=== PATIENT | male | born 1945 | race Caucasian/White ===

== ENCOUNTER 2017-11-27 17:25 | Emergency (ER) | payer MEDICARE ==
[~2017-11-27 17:25] MED LIST: ALLO300T PO; AMLO10TA2 PO; ASPI-482 PO; AZIT250T6 PO; CARV6.252 PO; CHOL2000 PO; DOCU-150 PO; FERR325T58 PO; GLIM4TAB2 PO; HYDR-971 PO; HYDR12.58 PO; INSU100I13 SQ; LISI40TA PO; METH4TAB PO; MULT1TAB52 PO; OMEG500C PO; PRAV40TA2 PO; TRAZ50TA15 PO
--- NOTE | 2017-11-27 17:39 | ED.ADGEN ---
Past History Past Medical History: Diabetes, Heart Disease, Renal Disease, Other Past Surgical History: Hip Replacement, Knee Replacement, Lumbar Laminectomy, Other Smoking: Non-smoker Alcohol Use: None Drug Use: None Adult General Chief Complaint Chief Complaint Note this is a reconstructed report- Prior loss in computer malfunction- there may be incomplete or duplication of record..." "...I superman and did not fly right... I was getting out of car...and walking along the edge ... stepped off edge.. and fell on my nose.." HPI HPI Patient is a 71 year old male who presents with above hx and complaints fall and abrasion to nose. No loss of consciousness. No hx of dizziness or dysrhythmia prior to fall. Pt. states he just missed stepped. Pt. has a deep 2 x 3 cm abrasion to bridge of nose. No septal hematoma. May have slight non- displace fx. of nasal bridge. No orbit tenderness. No visual changes. TM clear. Abrasions to both upper and lower lips. Good bite. No neck tenderness. No other reported injuries. Did have repeat skin tear 1 cm to old eschar lt forearm. Pt. not on any anticoagulant or antiplatelets. Pt. reports up to date with tetanus. Pt. noted to have other abrasions to lower legs that appear to be different stages of healing. was present at time of fall. She reports no loss consciousness and he is at base line mental status. Pt. recently had [facility] for chemo tx. 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 Pt. states labs follow at . Pt. also follows with [facility] for care. No hx of travel or specific ill contacts. Pt. Declines CT or labs at this time. Wounds cleaned with surgical soap and antibiotic placed. Review of Systems Review of Systems Constitutional: Denies fever or chills [] Eyes: Denies change in visual acuity, redness, or eye pain [] HENT: Denies nasal congestion or sore throat [] Complaints of nasal abrasion. Respiratory: Denies cough or shortness of breath [] Cardiovascular: No additional information not addressed in HPI [] GI: Denies abdominal pain, nausea, vomiting, bloody stools or diarrhea [] : Denies dysuria or hematuria [] Musculoskeletal: Denies back pain or joint pain [] Integument: Denies rash or skin lesions [] Neurologic: Denies headache, focal weakness or sensory changes [] Endocrine: Denies polyuria or polydipsia [] All other systems were reviewed and found to be within normal limits, except as documented in this note. Family History Family History Non-contributory Current Medications Current Medications See Nursing for home meds. Allergies Allergies Allergies Coded Allergies Type Severity Reaction Last Updated Verified pioglitazone HCl Allergy Severe 06/28/14 Yes NSAIDS (Non-Steroidal Anti-Inflamma Adverse Reaction Unknown hx kidney dx No Physical Exam Physical Exam Constitutional: Moderately acute distress, non-toxic appearance. [] HENT: Normocephalic, , bilateral external ears normal, oropharynx moist, no oral exudates, nose abrasions to nose. Abrasion to lips Eyes: PERRLA, EOMI, conjunctiva normal, no discharge. [] Neck: Normal range of motion, no tenderness, supple, no stridor. [] Cardiovascular:Heart rate regular rhythm, no murmur []PMI Lt. Lungs & Thorax: Bilateral breath sounds equal at apex on auscultation [] Port. Rt. Abdomen: Bowel sounds normal, soft, no tenderness, no masses, no pulsatile masses. [] Skin: Warm, dry, no erythema, no rash. [] Abrasions as per HPI. Back: No tenderness, no CVA tenderness. [] Old scar. Extremities: No tenderness, no cyanosis, no clubbing, ROM intact, no edema. [] Arthritic changes. Abrasions- different stages healing. Old scars knees, hip. Neurologic: Alert and oriented X 3, moves all ext. on request, report his sensory function at baseline, , no focal deficits noted. []Has slightly shuffle gait. DTR +2 patella. strip roller equal. Psychologic: Affect normal, judgement normal, mood normal. [] Current Patient Data Vital Signs Vital Signs Date Time Temp Pulse Resp B/P (MAP) Pulse Ox O2 Delivery O2 Flow Rate FiO2 11/27/17 17:40 98.2 78 18 98 Room Air EKG EKG [] Radiology/Procedures Radiology/Procedures [] Course & Med Decision Making Course & Med Decision Making Pertinent Labs and Imaging studies reviewed. (See chart for details). Wound wash with surgical soap and antibiotic place with gauze dressing. Do not blow nose. May sniff. Apply polysporin 4 x day. No direct show water or bath water until good eschar forms. Head injury precautions given. Advised pt risk of infection due immunosuppression from bone marrow transplant tx. Must follow up with primary and [facility]. Return if any concerns. Pt. declines CT or Labs at this time. Has follow up at [facility]. Transplant team. [] Final Impression Final Impression 1. Fall 2. Abrasion Nasal / contusion[] Dragon Disclaimer Dragon Disclaimer This electronic medical record was generated, in whole or in part, using a voice recognition dictation system. JEFF HERNANDEZ MD November 27, 2017 17:39
[2017-11-27 17:40] VITALS: BP 170/72
[2017-11-27] MEDS ORDERED: BACI28.34 TP (18:06)
== END 2017-11-27 18:14 | disposition home or self-care (01) ==
LOC: ER 17:25
DX: S00.31XA Abrasion of nose, initial encounter (principal); S00.511A Abrasion of lip, initial encounter; S51.812A Laceration without foreign body of left forearm, initial encounter; E11.9 Type 2 diabetes mellitus without complications; N28.9 Disorder of kidney and ureter, unspecified; I51.9 Heart disease, unspecified; Z88.6 Allergy status to analgesic agent; Z88.8 Allergy status to other drugs, medicaments and biological substances; W01.198A Fall on same level from slipping, tripping and stumbling with subsequent striking against other object, initial encounter; Y93.01 Activity, walking, marching and hiking; Y99.8 Other external cause status; Y92.89 Other specified places as the place of occurrence of the external cause
CPT/HCPCS: 99284

== ENCOUNTER → 2018-11-01 | Outpatient (CLI) | payer MEDICARE ==
[~2018-11-01] MED LIST changes: -AMLO10TA2 PO; +AMLO10TA8 PO; +BACI28.34 TP; -CARV6.252 PO; +CARV6.2541 PO; +HYDR-3165 PO; -HYDR-971 PO; +TRAZ-120 PO; -TRAZ50TA15 PO
--- NOTE | 2018-11-01 13:57 | RAD ---
PA and lateral chest x-ray compared to similar exam dated December 14, 2014 for pneumonia. FINDINGS: There are patchy areas of dense opacification throughout both lungs with a central distribution. These findings are new and could reflect active pneumonic infiltrates, sequelae of mediastinal radiation or other infectious, inflammatory, or reactive parenchymal change. Heart size within normal limits. No pleural effusions. No pneumothorax. A right IJ infusion catheter is present. IMPRESSION: 1. Focal bilateral perihilar infiltrates, concerning for infectious, inflammatory, or reactive lung disease. Electronically signed by: Ej Mccormick MD (11/01/2018 1:55 PM) [id number]
== END | disposition home or self-care (01) ==
LOC: PMG 07:46
PROVIDERS: ATTEND Physician Assistant Medical
DX: J18.9 Pneumonia, unspecified organism (principal); R91.8 Other nonspecific abnormal finding of lung field
CPT/HCPCS: 71046

== ENCOUNTER 2021-03-17 18:55 | Emergency (ER) | payer MEDICARE ==
[~2021-03-17] VITALS: Ht 172.7 cm; Wt 63.6 kg
[~2021-03-17 18:55] MED LIST changes: +AMLO-187 PO; -AMLO10TA8 PO; -DOCU-150 PO; +DOCU-158 PO; -GLIM4TAB2 PO; +GLIM4TAB8 PO; -LISI40TA PO; +LISI40TA6 PO; +MULT-445 PO; -MULT1TAB52 PO
[2021-03-17 19:45] LABS: BASO # 0.1 x10^3/uL (0.0-0.2); BASO % 1 % (0-3); EOS % 0 % (0-3); HEMATOCRIT 29.3 % (39.0-53.0); HEMOGLOBIN 9.6 g/dL (13.0-17.5); LYMPH # 1.1 x10^3/uL (1.0-4.8); LYMPH % 9 % (24-48); MEAN CORPUSCULAR HEMOGLOBIN 33 pg (25-35); MEAN CORPUSCULAR HGB CONC 33 g/dL (31-37); MEAN CORPUSCULAR VOLUME 101 fL (79-100); MONO # 0.8 x10^3/uL (0.0-1.1); MONO % 7 % (0-9); NEUT # 10.7 x10^3uL (1.8-7.7); NEUT % 84 % (31-73); PLATELET COUNT 112 x10^3/uL (140-400); RED CELL DISTRIBUTION WIDTH 17.1 % (11.5-14.5); WHITE BLOOD COUNT 12.8 x10^3/uL (4.0-11.0)
[2021-03-17 20:01] LABS: ALBUMIN 3.2 g/dL (3.4-5.0); ALBUMIN/GLOBULIN RATIO 1.1 (1.0-1.7); ALK PHOS 67 U/L (46-116); ALT (SGPT) 35 U/L (16-63); ANION GAP 10 (6-14); AST (SGOT) 37 U/L (15-37); BLOOD UREA NITROGEN 53 mg/dL (8-26); BUN/CREATININE RATIO 38 (6-20); CALCIUM 9.2 mg/dL (8.5-10.1); CARBON DIOXIDE 24 mmol/L (21-32); CHLORIDE 98 mmol/L (98-107); CREATININE 1.4 mg/dL (0.7-1.3); DIRECT BILIRUBIN 0.2 mg/dL (0.0-0.2); GFR 49.1; GLUCOSE 336 mg/dL (70-99); POTASSIUM 4.6 mmol/L (3.5-5.1); SODIUM 132 mmol/L (136-145); TOTAL BILIRUBIN 0.6 mg/dL (0.2-1.0); TOTAL PROTEIN 6.1 g/dL (6.4-8.2)
--- NOTE | 2021-03-17 20:12 | RAD ---
Exam: Chest one view INDICATION: Shortness of breath TECHNIQUE: Frontal view of the chest Comparisons: None FINDINGS: Right-sided catheter with tip in the SVC. The cardiomediastinal silhouette and pulmonary vessels are within normal limits. Subtle patchy bilateral airspace disease. No pleural effusion. IMPRESSION: Subtle bilateral airspace disease may relate to atelectasis or developing infectious process. Electronically signed by: Jaye Elliott MD (03/17/2021 8:10 PM) [place]
--- NOTE | 2021-03-17 20:32 | PHYS DOC ---
Past History Past Medical History: Diabetes, Heart Disease, Renal Disease, Other (JONATHAN ALCALA) Past Surgical History: No Surgical History (JONATHAN ALCALA) Smoking: Non-smoker Alcohol Use: None Drug Use: None (JONATHAN ALCALA) General Adult EDM: Chief Complaint: WEAKNESS/GENERALIZED Problems: (1) Tachycardia (2) Shortness of breath (JONATHAN ALCALA) HPI: HPI: Patient is a 75 year old male who presents with tachycardia and shortness of breath. Patient is a poor historian. Patient was recently discharged from [facility] for treatment of Covid pneumonia. According to his paperwork, he was discharged 03/12/2021. Patient states that yesterday and today, his heart rate has been elevated off and on. Patient reports his highest heart rate around 180s. He reports he felt lightheaded, "like he was going to pass out," so his called EMS. Patient states he received a bone marrow transplant in 2014. Per nursing, patient uses 2 L of oxygen at night. (JONATHAN ALCALA) Review of Systems: Review of Systems: Unable to obtain secondary to poor history. (JONATHAN ALCALA) Allergies: Allergies: Allergies Coded Allergies Type Severity Reaction Last Updated Verified pioglitazone HCl Allergy Severe 06/28/14 Yes NSAIDS (Non-Steroidal Anti-Inflamma Adverse Reaction Unknown hx kidney dx 06/28/14 No (JONATHAN ALCALA) Physical Exam: PE: Constitutional: Patient is sitting upright in bed. He is somnolent, and can only speak in short phrases. HENT: Normocephalic, atraumatic, bilateral external ears normal, nose normal. [] Eyes: PERRLA, EOMI, conjunctiva normal, no discharge. [] Neck: Normal range of motion, no tenderness, supple, no stridor. [] Cardiovascular: Elevated heart rate, no murmurs rubs or gallops. Lungs & Thorax: Port noted on right upper chest. Decreased air movement bilaterally. Abdomen: Bruising noted diffusely over abdomen (patient reports due to insulin injections). Bowel sounds normal, soft, no tenderness, no masses, no pulsatile masses. [] Skin: Pallor, diaphoretic. No rash. Extremities: No tenderness, no cyanosis, no clubbing, ROM intact, no edema. [] Neurologic: Alert and oriented X 3, no focal deficits noted. [] (JONATHAN ALCALA) Current Patient Data: Labs: Nursery Laboratory Tests 03/17/21 19:10: White Blood Count 12.8, Red Blood Count 2.90, Hemoglobin 9.6, Hematocrit 29.3, Mean Corpuscular Volume 101, Mean Corpuscular Hemoglobin 33, Mean Corpuscular Hemoglobin Concent 33, Red Cell Distribution Width 17.1, Platelet Count 112, Neutrophils (%) (Auto) 84, Lymphocytes (%) (Auto) 9, Monocytes (%) (Auto) 7, Eosinophils (%) (Auto) 0, Basophils (%) (Auto) 1, Neutrophils # (Auto) 10.7, Lymphocytes # (Auto) 1.1, Monocytes # (Auto) 0.8, Eosinophils # (Auto) 0.0, Basophils # (Auto) 0.1, Segmented Neutrophils % 80, Band Neutrophils % 2, Lymphocytes % 5, Monocytes % 13, Nucleated Red Blood Cells 7, Platelet Estimate Decreased, D-Dimer (Mary) 13.64, Sodium Level 132, Potassium Level 4.6, Chloride Level 98, Carbon Dioxide Level 24, Anion Gap 10, Blood Urea Nitrogen 53, Creatinine 1.4, Estimated GFR (Cockcroft-Gault) 49.1, BUN/Creatinine Ratio 38, Glucose Level 336, Lactic Acid Level 8.0, Calcium Level 9.2, Total Bilirubin 0.6, Direct Bilirubin 0.2, Aspartate Amino Transf (AST/SGOT) 37, Alanine Aminotransferase (ALT/SGPT) 35, Alkaline Phosphatase 67, Creatine Kinase 30, Creatine Kinase MB (Mass) 1.9, Creatine Kinase MB Relative Index , Troponin I Quantitative 0.061, Total Protein 6.1, Albumin 3.2, Albumin/Globulin Ratio 1.1 Vital Signs: VS - Last 72 Hours, by Label Date Time Temp Pulse Resp B/P (MAP) Pulse Ox O2 Delivery O2 Flow Rate FiO2 03/17/21 20:14 113 19 110/68 (82) 95 03/17/21 19:41 110 20 132/71 94 03/17/21 19:40 104 18 132/71 (91) 95 03/17/21 19:00 97 17 125/75 (92) 94 (JONATHAN ALCALA) EKG: EKG: EKG interpreted by Dr. Booth: Tachycardic with a rate of 111, occasional PVCs present. No ST elevation. (JONATHAN ALCALA) Radiology/Procedures: Radiology/Procedures: PROCEDURE: PORTABLE CHEST 1V Exam: Chest one view INDICATION: Shortness of breath TECHNIQUE: Frontal view of the chest Comparisons: None FINDINGS: Right-sided catheter with tip in the SVC. The cardiomediastinal silhouette and pulmonary vessels are within normal limits. Subtle patchy bilateral airspace disease. No pleural effusion. IMPRESSION: Subtle bilateral airspace disease may relate to atelectasis or developing infectious process. Electronically signed by: Jaye Elliott MD (03/17/2021 8:10 PM) [facility] (JONATHAN ALCALA) Heart Score: C/O Chest Pain: N/A (JONATHAN ALCALA) Course & Med Decision Making: Course & Med Decision Making Pertinent Labs and Imaging studies reviewed. (See chart for details) Dr. Ornelas consulted frequently during patient course. SIRS criteria met: elevated heart rate, WBC >12, RR >20, pulmonary source suspe cted, lactic acidosis 8, confirmed COVID-19+ patient. CT-Angio chest deferred until hydration and coagulation status stabilized. In speaking with patient regarding admission, he states he would prefer to go to [facility] where he was treated previously. Spoke with [facility] transfer center at 21:32. Awaiting callback. Dr. Bella will accept patient at [facility] COVID floor. Patient labs and imaging discussed, inquired as to further intervention or imaging. As cultures are already obtained, accepting physician requested Vancomycin and cefipime be initiated prior to transfer. (JONATHAN LACALA) Dragon Disclaimer: Dragon Disclaimer: This electronic medical record was generated, in whole or in part, using a voice recognition dictation system. (JONATHAN ALCALA) Departure Departure: Disposition: 02 SHORT TERM [facility]OSPITAL (Transfer to [facility] unit, Care of Dr. Bella) Condition: GUARDED Referrals: STEVE WEINER (PCP) Attending Signature Attending Signature I have participated in the care of this patient and I have reviewed and agree with all pertinent clinical information above including history, exam, and recommendations. (JEFF BOOTH MD) JONATHAN ALCALA Mar 17, 2021 20:32 JEFF BOOTH MD Mar 19, 2021 07:23
[2021-03-17] MEDS ORDERED: IV NORMAL SALINE 1,000ML 1,000 ML IV SCH (21:00)
--- NOTE | 2021-03-17 21:02 | EKG ---
[address] [address] Test Date: 2021-03-17 Test Time: 19:21:51 Pat Name: EVER GRAY Department: Room: Gender: M Television Engineer: : 1945 Requested By: JONATHAN ALCALA Order Number: [id number] Reading MD: Tommy Mack MD Measurements Intervals [place] Rate: 111 P: 244 MN: 178 QRS: 9 QRSD: 80 T: 56 QT: 326 QTc: 447 Interpretive Statements SINUS TACHYCARDIA VENTRICULAR PREMATURE COMPLEX(ES) QRS(T) CONTOUR ABNORMALITY CONSIDER INFERIOR INFARCT ABNORMAL ECG Electronically Signed On 03-20-2021 9:29:57 CDT by Tommy Mack MD
[2021-03-17 21:24] LABS: % BANDS 2 % (0-9); % LYMPHS 5 % (24-48); % MONOS 13 % (0-10); % SEGS 80 % (35-66); NUCLEATED RBC 7
[2021-03-17 21:25] LABS: PLT ESTIMATE DECREASED (ADEQUATE)
[2021-03-17] MEDS ORDERED: CEFEPIME HCL 2 GM in IV NORMAL SALINE 100ML 100 ML IV ONE (22:15)
[2021-03-17] MEDS ORDERED: VANCOMYCIN 1 GM in IV NORMAL SALINE 250ML 250 ML IV ONE (22:15)
[2021-03-17] MEDS ORDERED: IV NORMAL SALINE 100ML 100 ML ONE (22:46)
[2021-03-17] MEDS ORDERED: CEFEPIME HCL 2 GM VIAL IV ONE (22:46)
[2021-03-17] MEDS ORDERED: VANCOMYCIN 1 GM VIAL. ONE (23:10)
[2021-03-17] MEDS ORDERED: IV NORMAL SALINE 250ML 250 ML ONE (23:10)
[2021-03-17 23:39] VITALS: BP 160/87
[2021-03-18] MEDS ORDERED: CEFEPIME HCL 2 GM in IV NORMAL SALINE 100ML 100 ML IV SCH (06:00)
== END 2021-03-18 00:11 | disposition short-term general hospital (02) ==
LOC: ER 18:55
DX: R00.0 Tachycardia, unspecified (principal); R06.02 Shortness of breath; R42 Dizziness and giddiness; E11.9 Type 2 diabetes mellitus without complications; Z86.16 Personal history of COVID-19; Z88.6 Allergy status to analgesic agent; Z88.8 Allergy status to other drugs, medicaments and biological substances
CPT/HCPCS: 36415; 71045; 80053; 80076; 82553; 83605; 84484; 85007; 85025; 85379; 87040; 93005; 96361; 96365; 96368; 99285; J0692; J3370; J7030; J7050

== ENCOUNTER 2021-07-20 16:42 | Emergency (ER) | payer MEDICARE ==
[~2021-07-20] VITALS: Ht 172.7 cm; Wt 63.6 kg
--- NOTE | 2021-07-20 17:10 | PHYS DOC ---
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 Patient was eating at a local [place] restaurant. After eating, he was ambulating at the store and tripped over a piece of concrete and fell striking his forehead on the small seating wall. He did not lose consciousness. There were paramedics who happened to be on the scene who provided immediate care and dressed his wounds. EMS arrived and brought him to the emergency department immediately. No nausea or vomiting. No vision changes. His only complaints are injury to the left forehead, injury to the left elbow. He does not complain of neck pain. He has been at baseline health lately which is overall poor. 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 He is followed by oncology regularly. Tetanus immunization is up-to-date. He did not have lightheadedness, dizziness, palpitations, chest pain, shortness of breath prior to the fall. Review of Systems Review of Systems Constitutional: Denies fever or chills Eyes: Denies change in visual acuity, redness, or eye pain HENT: Denies nasal congestion or sore throat Respiratory: Denies cough or shortness of breath Cardiovascular: No additional information not addressed in HPI GI: Denies abdominal pain, nausea, vomiting, bloody stools or diarrhea : Denies dysuria or hematuria Musculoskeletal: As documented in HPI Integument: Skin wound over left forehead and left elbow Neurologic: Denies headache, focal weakness or sensory changes Endocrine: Denies All other systems were reviewed and found to be within normal limits, except as documented in this note. Allergies Allergies Allergies Coded Allergies Type Severity Reaction Last Updated Verified pioglitazone HCl Allergy Severe 07/20/21 Yes NSAIDS (Non-Steroidal Anti-Inflamma Adverse Reaction Unknown hx kidney dx 07/20/21 No Physical Exam Physical Exam Constitutional: Well developed, well nourished, elderly male in no acute distress, HENT: Hematoma and minor abrasion to the skin over the left forehead just above the left eyebrow. No suturable injuries present. Eyes: PERRLA, EOMI Neck: Normal range of motion, no TTP over midline Cardiovascular:Heart rate regular rhythm Lungs & Thorax: Bilateral breath sounds clear Abdomen: Bowel sounds normal, soft, no tenderness Skin: Large skin tear over the left proximal forearm. No suturable injury Back: No tenderness Extremities: No tenderness. Complains of pain about the elbow joint. Has none painful passive range of motion about the joint. No gross deformity. Neurologic: Alert and oriented X 3, normal motor function Psychologic: Affect normal Current Patient Data Vital Signs Vital Signs Date Time Temp Pulse Resp B/P (MAP) Pulse Ox O2 Delivery O2 Flow Rate FiO2 07/20/21 16:45 98.4 74 20 184/93 (123) 94 Room Air EKG EKG [] Radiology/Procedures Radiology/Procedures [] Heart Score C/O Chest Pain: No Risk Factors: Risk Factors: DM, Current or recent (<one month) smoker, HTN, HLP, family history of CAD, obesity. Risk Scores: Risk Factors: DM, Current or recent (<one month) smoker, HTN, HLP, family history of CAD, obesity. Course & Med Decision Making Course & Med Decision Making Pertinent Labs and Imaging studies reviewed. (See chart for details) Mr. Mcrae is evaluated on arrival to his room. Physical examination as documented above. He describes a mechanical fall. No tetanus indicated. A dressing is applied to the left forearm with Vaseline gauze and Telfa and Pamella wrap. CT scans ordered. Left elbow x-rays ordered. 17:50: Patient taken to CT scan and for x-rays. Transfer of care to Dr. Rousseau. Please follow-up on imaging and patient should be stable for discharge assuming negative results. Dragon Disclaimer Dragon Disclaimer This electronic medical record was generated, in whole or in part, using a voice recognition dictation system. Departure Departure: Impression: Primary Impression: Fall Additional Impressions: Head injury Skin tear of left elbow without complication Disposition: 30 STILL A PATIENT Condition: GOOD Referrals: STEVE WEINER (PCP) Patient Instructions: Skin Tear Care, [id number] Problem Qualifiers AUGUSTINA LANDEROS DO Jul 20, 2021 17:10
--- NOTE | 2021-07-20 19:17 | RAD ---
XR ELBOW COMPLETE_LEFT 3+VIEWS Clinical indications: Reason: fall, left elbow injury / Spl. Instructions: / History: Findings: Small elbow joint effusion is seen. There is a nondisplaced fracture of the proximal radia l head. Alignment is normal. No lytic process is seen. Prominent traction spur of the olecranon is se en. IMPRESSION: Small nondisplaced fracture of the radial head. Electronically signed by: Rivera Woodruff MD (07/20/2021 7:14 PM) [id number]
--- NOTE | 2021-07-20 19:24 | RAD ---
CT HEAD AND C-SPINE WO Clinical indications: Reason: fall, head injury / Spl. Instructions: / History: NONCONTRAST HEAD CT COMPARISON: None available. Technique: Noncontrast axial cross sectional scanning of the head was performed. PQRS compliance Statement One or more of the following individualized dose reduction techniques were utilized for this study: 1. Automated exposure control 2. Adjustment of the mA and/or kV according to patient size 3. Use of iterative reconstruction technique Findings: No acute intracranial hemorrhage or midline shift or mass-effect or hydrocephalus or extra- axial fluid collection is seen. Mild bilateral periventricular white matter hypodensity is seen consi stent with chronic small vessel ischemic disease. There is a small old lacunar infarct of the anterio r limb of the left internal capsule. No skull fracture or pneumocephalus is seen. No opacification of the mastoid sinuses or the middle ear cavities or the paranasal sinuses is seen. The maxillary sinus es are not completely seen in this study. IMPRESSION: No acute intracranial hemorrhage is seen. Chronic small vessel ischemic disease. NONCONTRAST CERVICAL SPINE CT TECHNIQUE: Noncontrast helical CT scanning of the cervical spine was performed. Multiplanar 2-D recon structions were generated. FINDINGS: No acute fracture or discitis or lytic process is evident. No anterolisthesis or perching o f facet joints is seen. There is degenerative facet arthropathy. The spinous processes are intact. Th ere is degenerative disc space narrowing and endplate spurring throughout the cervical spine most sev ere at C3-4. Spurring at this level along with disc protrusion results in a spinal canal stenosis. Le ss prominent spinal canal stenosis is seen at C4-5 and C6-7. Spinal canal stenosis at C3-4 is more pr ominent on the left side. Spinal canal is narrowed to 7.5 mm just to the left of midline here. There is also multilevel neural foraminal narrowing. This is most severe on the left side at C3-4. IMPRESSION: No acute fracture. Degenerative cervical spondylosis. Spinal canal stenosis at C3-4. Electronically signed by: Rivera Woodruff MD (07/20/2021 7:22 PM) [id number]
[2021-07-20] MEDS ORDERED: ACETAMINOPHEN/CODEINE 300/30MG 4TABLET STARTPACK. PO ONE (19:45)
[2021-07-20] MEDS ORDERED: oxyCODONE/APAP 5/325 1 TAB TABLET PO ONE (19:45)
[2021-07-20 20:15] VITALS: BP 174/79
== END 2021-07-20 20:15 | disposition still patient (30) ==
LOC: ER 16:42
DX: S51.012A Laceration without foreign body of left elbow, initial encounter (principal); S00.83XA Contusion of other part of head, initial encounter; E11.9 Type 2 diabetes mellitus without complications; W18.09XA Striking against other object with subsequent fall, initial encounter; Y93.89 Activity, other specified; Y92.89 Other specified places as the place of occurrence of the external cause; Y99.8 Other external cause status
CPT/HCPCS: 29105; 70450; 72125; 73080; 99284